=== PATIENT | female | born 1950 | race Caucasian/White ===

== ENCOUNTER 2023-02-19 16:04 | Outpatient (CLI) | payer BC ==
[2023-02-19 16:45] LABS: #Eosinphils 0.2 10x3/uL (0.0-0.5); #Monocytes 0.7 10x3/uL (0.0-1.1); #Neutrophils 7.3 10x3/uL (1.5-8.4); %Basophils 0.4 % (0.0-2.0); %Eosinophils 2.1 % (0.0-6.0); %Lymphocytes 22.1 % (18.0-47.0); %Monocytes 6.5 % (0.0-10.0); %Neutrophils 68.5 % (40.0-75.0); Hematocrit 39.9 % (34.9-44.5); Mean Corpuscular HGB CONC 32.6 g/dL (32.0-36.0); Mean Corpuscular Hemoglobin 28.3 pg (27.0-33.0); Mean Corpuscular Volume 86.9 fl (81.6-98.3); Mean Platelet Volume 9.6 fl (7.4-10.4); Platelet Count 365 10x3/uL (150-450); RBC Distribution Width 13.8 % (11.5-14.5); Red Blood Cell (RBC) Count 4.59 10x6/uL (3.90-5.03); White Blood Cell (WBC) Count 10.6 10x3/uL (3.5-10.5)
[2023-02-19 18:19] LABS: Anion Gap 17 mmol/L (10-20); BUN (Urea Nitrogen) 19 mg/dL (9.8-20.1); Calc. Creatinine Clearance 0 mL/min (70-130); Calcium 10.1 mg/dL (7.8-10.44); Carbon Dioxide 24 mmol/L (23-31); Chloride 101 mmol/L (98-107); Estimated GFR 74; Glucose 91 mg/dL (83-110); Potassium 4.8 mmol/L (3.5-5.1); Sodium 137 mmol/L (136-145)
== END 2023-02-19 16:05 | disposition home or self-care (01) ==
LOC: LABBT 16:04
PROVIDERS: ATTEND Orthopaedic Surgery
DX: Z01.812 Encounter for preprocedural laboratory examination (principal); M75.101 Unspecified rotator cuff tear or rupture of right shoulder, not specified as traumatic
CPT/HCPCS: 80048; 85025

== ENCOUNTER 2023-02-23 07:43 | Day surgery (SDC) | payer BC ==
[2023-02-19 16:26] VITALS: BMI 36.0
[2023-02-23] MEDS ORDERED: Vancomycin (BATCH) 1.5 GM/300 ML BAG ONE (08:42)
[2023-02-23] MEDS ORDERED: fentaNYL 50 mcg/mL 1 mL Vial ONE ×3 (09:33→13:59)
[2023-02-23] MEDS ORDERED: Midazolam HCl 2 mg/2 ml Vial ONE (09:33)
[2023-02-23] MEDS ORDERED: Ropivacaine 0.2% HCl/PF 20 ML ONE (09:33)
[2023-02-23] MEDS ORDERED: Ropivacaine 0.5% HCl/PF (150 MG/30 ML VIAL) ONE (09:33)
[2023-02-23] MEDS ORDERED: PROPOFOL 20 ML ONE (10:25)
[2023-02-23] MEDS ORDERED: Lidocaine 1% PF 5 ML VIAL ONE (10:27)
[2023-02-23] MEDS ORDERED: Rocuronium Bromide 10 MG/ML (10ML VIAL) ONE (10:27)
[2023-02-23] MEDS ORDERED: Zolpidem Tartrate 5 MG TAB PO PRN (10:45)
[2023-02-23] MEDS ORDERED: Promethazine HCl 25 MG/ML VIAL IM PRN (10:45)
[2023-02-23] MEDS ORDERED: Ropivacaine 0.2% 550 ML 550 ML NERVE BLCK SCH (10:45)
[2023-02-23] MEDS ORDERED: HYDROcodone/Acetaminophen 10/325 mg Tablet PO PRN ×2 (10:45)
[2023-02-23] MEDS ORDERED: Ondansetron PF 4 MG/2 ML Vial IVP PRN (10:45)
[2023-02-23] MEDS ORDERED: Lidocaine 2% PF 5 ML VIAL ONE (11:01)
[2023-02-23] MEDS ORDERED: CEFAZOLIN 2 GM VIAL ONE (11:05)
[2023-02-23] MEDS ORDERED: Sodium Chloride 0.9% 100 ML ONE (11:05)
[2023-02-23] MEDS ORDERED: PHENYLEPHRINE-NS 100 MCG/ML 10 ML SYRINGE ONE (11:57)
[2023-02-23] MEDS ORDERED: Ondansetron PF 4 MG/2 ML Vial ONE (12:49)
[2023-02-23] MEDS ORDERED: SUGAMMADEX SODIUM 200 MG/2 ML VIAL ONE (12:49)
== END 2023-02-23 15:50 | disposition home or self-care (01) ==
LOC: SDC 07:43
PROVIDERS: ATTEND Orthopaedic Surgery
PROC: 0LM10ZZ Reattachment of Right Shoulder Tendon, Open Approach (ICD-10-PCS; principal; 2023-02-23)
DX: S46.211A Strain of muscle, fascia and tendon of other parts of biceps, right arm, initial encounter (principal); M75.101 Unspecified rotator cuff tear or rupture of right shoulder, not specified as traumatic; M17.12 Unilateral primary osteoarthritis, left knee; M25.811 Other specified joint disorders, right shoulder; Z79.899 Other long term (current) drug therapy; X58.XXXA Exposure to other specified factors, initial encounter
CPT/HCPCS: A4306; C1713; J2001; J2250; J2405; J2704; J2795; J3010; J3370; J3490